=== PATIENT | female | born 1980 | race Caucasian/White ===

== ENCOUNTER 2016-10-27 19:14 | Emergency (ER) | payer OTHER ==
[2016-10-27] MEDS ORDERED: METOCLOPRAMIDE HCL 5 MG/ML VIAL IV ONE (20:00)
[2016-10-27] MEDS ORDERED: KETOROLAC TROMETHAMINE 30 MG/ML VIAL IV ONE (20:00)
[2016-10-27] MEDS ORDERED: KETOROLAC TROMETHAMINE 30 MG/ML VIAL ONE (20:02)
[2016-10-27] MEDS ORDERED: METOCLOPRAMIDE HCL 5 MG/ML VIAL ONE (20:02)
[2016-10-27 20:14] LABS: Hemoglobin 13.3 gm/dL (12.5-16.0); Mean Cell Volume 88.4 fl (78-100); Mean Corpuscular Hemoglobin 30.2 pg (27-31); Mean Corpuscular Hgb Conc 34.1 g/dl (32-36); Mean Platelet Volume 9.5 fl (6.0-9.5); Neutrophil # 10.6 K/mm3 (1.3-6.0); Neutrophil % 72.6 % (42-75.0); Platelet Count 256 K/mm3 (150-450); Red Blood Count 4.41 M/mm3 (4.2-5.4); Red Cell Distribution Width 13.2 % (11.5-14.0); White Blood Count 14.6 K/mm3 (4.0-10.5)
[2016-10-27 20:28] LABS: Albumin * 3.8 gm/dl (3.4-5.0); Anion Gap 14.4 mmol/L (6.8-13.8); BUN/Creatinine Ratio 11.5 (9.0-21.6); Bilirubin, Total 0.4 mg/dL (0.0-1.1); CRP 1.5 mg/dL (0.0-0.9); Ca. Corrected For Albumin 8.6 mg/dL (8.4-10.2); Calcium * 8.8 mg/dL (7.9-10.9); Carbon Dioxide 23.3 mmol/L (24-32.6); Potassium 3.7 mmol/L (3.4-4.6); Total Protein 7.2 gm/dL (6.2-8.2)
[2016-10-27] MEDS ORDERED: DIATRIZOATE MEGLUMINE, SODIUM 30 ML BTL PO ONE (20:40)
[2016-10-27] MEDS ORDERED: DIATRIZOATE MEGLUMINE, SODIUM 30 ML BTL ONE (20:41)
--- NOTE | 2016-10-27 20:56 | ERNOTE ---
<Zoe Steven - Last Filed: 10/27/16 21:44> Abdominal HPI - Narrative Date of Service: 10/27/16 - General Chief Complaint: Abdominal Pain Time Seen by Provider: 10/27/16 19:57 Source: patient, RN notes reviewed Exam Limitations: clinical condition - Immun/Allergies/Home Medications Immunizatons: IMMUNIZATION HX Immunizations Up to Date Yes History of Influenza Vaccine No Hx Pneumococcal Vaccination No Allergies/Adverse Reactions: Allergies No Known Allergies Allergy (Verified 01/29/14 11:24) Home Medications: HOME MEDICATIONS Ibuprofen [Motrin] 600 mg PO Q6H PRN 03/15/14 [Last Taken Unknown] - Pain Score Pain Score #1 Pain Score: 8 Abdominal Pain Onset Location: suprapubic Pain Radiation: no radiation - History of Present Illness Narrative: 36 y/o female presents to the ED for lower abdominal pain that began at 1300 today. She had just eaten a tenderloin for lunch. She has also been having diarrhea and nausea. She denies sick contacts. She has not taken anything for her symptoms. Date (Duration): 10/27/16 Time (Timing): 13:00 Timing: intermittent Quality: cramping Activities at Onset: none Associated Symptoms: Present: nausea. Absent: back pain, diarrhea-gross blood, diarrhea-mucous, fever/chills, vomiting, shortness of breath, swelling/mass in abdomen, syncope Prior Abdominal Problems: Present: none Prior Treatment: Absent: recently seen Review of Systems - Review of Systems Constitutional: Present: malaise. Absent: recent illness, fever, chills EYE: Present: no symptoms reported ENT: Absent: nose congestion, sore throat Respiratory: Absent: shortness of breath, cough Cardiology: Absent: chest pain, syncope Gastrointestinal/Abdominal: Present: nausea, diarrhea, abdominal pain. Absent: vomiting Genitourinary: Absent: dysuria, hematuria Musculoskeletal: Absent: back pain, muscle pain Skin: Absent: rash, lesions Neurological: Absent: headache, dizziness/light-headedness Endocrine: Present: no symptoms reported Hematologic/Lymphatic: Present: no symptoms reported Psych: Present: no symptoms reported - Patient's Past Medical History Patient History - Medical: Migraines Patient History - Cardiac/Respiratory: No pertinent hx Patient History - Cancer: No Hx of Cancer Patient History - Surgical Procedures: , Tubal Ligation Patient History - Other: None LMP (females 10-50): unknown - Social History Living Situations: home Abuse History: No History of abuse Psych History: No pertinent hx Smoking Status: Current every day smoker Cigarettes Packs Per Day: 1 Have you smoked in the past 12 months: No Alcohol Use: none Drug Use: marijuana - Immunizations Immunizations Up to Date: Yes Hx Pneumococcal Vaccination: No History of Influenza Vaccine: No Physical Exam - Physical Exam General Appearance: Present: alert, moderate distress, thin Neck: Present: normal inspection, nontender, supple Respiratory: Present: no respiratory distress, normal breath sounds, no accessory muscle use, lungs clear Cardiovascular/Chest: Present: regular rate, rhythm, no murmur, normal peripheral pulses Gastrointestinal/Abdominal: Present: normal bowel sounds, nondistended, soft, tenderness - severe, lower abdomen, guarding. Absent: mass Back Exam: Present: normal inspection, normal range of motion, no CVA tenderness Extremity Exam: Present: normal inspection, normal range of motion, no edema Neurological Exam: Present: alert, oriented, normal mood/affect, no motor/ sensory deficits Skin Exam: Present: normal color, warm/dry ED Progress - Results and Orders Patient's Lab Results:: I have reviewed the patient's lab results. - Vital Signs Patient's Vital Signs:: I have reviewed the patient's vital signs. Vital Signs: Vital Signs 10/27/16 10/27/16 10/27/16 19:20 20:11 20:47 Temperature 37.5 C Pulse Rate 92 69 69 Respiratory 24 H 20 18 Rate Blood Pressure 117/70 100/69 104/54 O2 Sat by Pulse 98 99 98 Oximetry - Progress/Reassessment Chief Complaint: Abdominal Pain Progress:: Improved Progress Note-Subjective: 10/27/16 20:55 Pain improved with Toradol. Patient currently drinking contrast for CT scan. - Transfer of Care Physician Sign Out: Zoe Steven Receiving Physician: Britton Castillo Pending Results: CT/MRI results Expected Disposition: Discharge Departure - Departure Clinical Impression: Abdominal pain Qualifiers: Abdominal location: lower abdomen, unspecified Qualified Code(s): R10.30 - Lower abdominal pain, unspecified Leukocytosis Qualifiers: Leukocytosis type: unspecified Qualified Code(s): D72.829 - Elevated white blood cell count, unspecified Disposition: Home Follow Up Needed Condition: Good Instructions: Abdominal Pain, Adult, [id number] Additional Instructions: you may take ibuprofen or tylenol as needed for pain. Do not hesitate to return to the ER if you continue to have pain. Follow a clear liquid diet for the next 3-4 days. Referrals: Tyler Grace MD [Primary Care Provider] - <Britton Castillo - Last Filed: 10/28/16 02:31> Abdominal HPI - Immun/Allergies/Home Medications Immunizatons: IMMUNIZATION HX Immunizations Up to Date Yes History of Influenza Vaccine No Hx Pneumococcal Vaccination No ED Progress - Results and Orders Patient's Lab Results:: I have reviewed the patient's lab results. Results and Orders: Laboratory Tests 10/27/16 10/27/16 10/27/16 20:10 20:10 20:10 WBC 14.6 H Hgb 13.3 Hct 39.0 Plt Count 256 ESR 12 Sodium 140 Potassium 3.7 Chloride 106 BUN 9 Creatinine 0.78 Random Glucose 102 Calcium 8.8 Total Bilirubin 0.4 AST 13 ALT 13 L Alkaline Phosphatase 71 C-Reactive Prot, Quant 1.5 H Total Protein 7.2 Albumin 3.8 Serum HCG, Qual Urine Color Urine Appearance Urine pH Ur Specific [place] Urine Protein Urine Glucose (UA) Urine Ketones Urine Blood Urine Nitrate Urine Bilirubin Urine Urobilinogen Ur Leukocyte Esterase Urine RBC Urine WBC Ur Epithelial Cells Urine Bacteria Urine Culture Comments 10/27/16 10/27/16 20:10 23:08 WBC Hgb Hct Plt Count ESR Sodium Potassium Chloride BUN Creatinine Random Glucose Calcium Total Bilirubin AST ALT Alkaline Phosphatase C-Reactive Prot, Quant Total Protein Albumin Serum HCG, Qual Negative Urine Color Yellow Urine Appearance Slightly cloudy Urine pH 7.5 Ur Specific [place] 1.010 Urine Protein Negative Urine Glucose (UA) Negative Urine Ketones Negative Urine Blood 5 H Urine Nitrate Positive H Urine Bilirubin Negative Urine Urobilinogen Normal Ur Leukocyte Esterase Negative Urine RBC Trace Urine WBC None seen Ur Epithelial Cells Trace Urine Bacteria 3+ H Urine Culture Comments Culture to follow - Vital Signs Vital Signs: Vital Signs 10/27/16 10/27/16 10/27/16 19:20 20:11 20:47 Temperature 37.5 C Pulse Rate 92 69 69 Respiratory 24 H 20 18 Rate Blood Pressure 117/70 100/69 104/54 O2 Sat by Pulse 98 99 98 Oximetry 10/27/16 10/27/16 10/27/16 21:14 21:44 22:12 Temperature Pulse Rate 58 L 50 L 48 L Respiratory 18 16 16 Rate Blood Pressure 101/57 108/54 98/52 O2 Sat by Pulse 98 97 97 Oximetry 10/27/16 10/27/16 22:44 23:20 Temperature Pulse Rate 55 L 79 Respiratory 18 18 Rate Blood Pressure 102/51 118/55 O2 Sat by Pulse 97 97 Oximetry - CT/Ultrasound CT/Ultrasound Narrative: CT abd/pelvis with contrast mild dependent atelectasis focal fatty infiltration adjacent to the falciform ligament renal cysts bilateral adnexal cysts appendix appears normal multiple moderately distended contrast filled loops of small bowel without bowel wall thickening skeletal structures intact. - Progress/Reassessment Progress:: Improved Progress Note-Subjective: 10/27/16 23:[address] and now having increased pain. PE Pt has RLQ and periumbilic pain with guarding. 10/28/16 00:55 Pt is feeling much better and wants to go home. I discussed the CT findings with the patient and told her that the moderately dilated loops of small bowel were concerning for early SBO or illeus and suggested inpatient stay with IV fluids and remaining NPO. Pt stated "well that's not happening". So I suggested that we could allow her to go home if she would stick to a clear liquid diet and allow her bowels to rest and begin to move on their own. She stated "I will just go home and take a strong laxative". I educated the patient that if she does that right now it could make things worse. I suggested bowel rest and again clear liquids. Pt expressed understanding. I also cautioned her to not take excessive pain relievers, and if her stomach continues to hurt she should return to the ER. I also cautioned her that narcotic pain relievers slow the bowel down and can also make things worse and she should not take anything like that for pain. Pt agreed that she would return if she continued to have pain.
[2016-10-27] MEDS ORDERED: ONDANSETRON HCL/PF 2 MG/ML VIAL IV ONE (21:45)
[2016-10-27] MEDS ORDERED: ONDANSETRON HCL/PF 2 MG/ML VIAL ONE (21:46)
[2016-10-27] MEDS ORDERED: NALBUPHINE HCL 20 MG/ML AMPUL IV ONE (23:25)
[2016-10-27 23:26] LABS: Urine Bilirubin Negative (NEGATIVE); Urine Ketone Negative (NEGATIVE); Urine Protein Negative (NEGATIVE); Urine Urobilinogen Normal (NORMAL); Urine pH 7.5 pH (5.0-7.0)
[2016-10-27] MEDS ORDERED: NALBUPHINE HCL 20 MG/ML AMPUL ONE (23:30)
[2016-10-27 23:37] LABS: Urine Appearance Slightly Cloudy; Urine Bacteria 3+; Urine Blood 5 /ul (NEGATIVE); Urine Color Yellow; Urine Nitrite Positive (NEGATIVE); Urine RBC TRACE /hpf (0-5); Urine WBC None Seen /hpf (0-5)
[2016-10-28 00:58] VITALS: BP 97/52
== END 2016-10-28 00:58 | disposition home or self-care (01) ==
LOC: ER 19:14
DX: D72.829 Elevated white blood cell count, unspecified (principal); R10.30 Lower abdominal pain, unspecified; F17.210 Nicotine dependence, cigarettes, uncomplicated
CPT/HCPCS: 36415; 74177; 80053; 81001; 84703; 85025; 85652; 86140; 87077; 87086; 87186; 96374; 96375; 99284; J2405